=== PATIENT | male | born 1955 | race Caucasian/White ===

== ENCOUNTER 2017-03-22 16:52 | Emergency (ER) | payer BC ==
[~2017-03-22] VITALS: Ht 180.3 cm; Wt 54.0 kg
[~2017-03-22 16:52] MED LIST: AMOXICILLIN500 MG PO; ANACIN 400-321 EACH PO; CLARITHROMYCIN500 MG PO; EXCEDRIN EXTRA1 EACH PO; LEVOFLOXACIN500 MG PO; LO-DOSE ASPIRIN81 M1 PO; NICODERM CQ1 EAC1 TD; OXYCODONE HCL10 MG PO; PRILOSEC OTC20 MG PO; PROTONIX40 MG PO
[2017-03-22] MEDS ORDERED: CREON 241 CAPSULE PO (18:03)
[2017-03-22 18:29] LABS: EOSINOPHIL (%) 0 % (0-5); HEMATOCRIT 39.8 % (38.0-50.0); IMMATURE GRANULOCYTE (%) 0.5 % (0.0-0.7); IMMATURE GRANULOCYTE COUNT 0.1 K/uL; INSTRUMENT ABS NEUTROPHIL CT 8.1 K/uL; LYMPHOCYTE COUNT 0.7 K/uL (1.0-2.8); MCH 23.4 PG (29.0-34.0); MCHC 30.2 G/DL (30.0-36.0); MCV 77.6 FL (86-99); MEAN PLAT.VOLUME 10.3 uM^3 (9.0-12.4); MONOCYTE (%) 5.2 % (3-12); MONOCYTE COUNT 0.5 K/uL (0-0.8); NEUTROPHIL (%) 86.7 % (45-76); NEUTROPHIL COUNT 8.1 K/uL (1.8-6.4); PLATELET COUNT 282 K/uL (156-360); RBC DIS.WIDTH-CV 19.1 % (11.8-14.6); RBC DIS.WIDTH-SD 52.2 % (39-53); RED BLOOD COUNT 5.13 M/uL (4.00-5.50); WHITE BLOOD COUNT 9.3 K/uL (4.1-10.2)
[2017-03-22 18:38] LABS: CHLORIDE 109 mEq/L (99-109); SODIUM 141 mEq/L (136-147)
[2017-03-22 18:40] LABS: GLUCOSE 148 mg/dL (70-99)
[2017-03-22 18:41] LABS: ANION GAP 10 MEQ/L (2-14)
[2017-03-22 18:42] LABS: TOTAL BILIRUBIN 0.4 mg/dL (0.0-1.0)
[2017-03-22 18:44] LABS: ALKALINE PHOSPHATASE 76 IU/L (3-129); GFR ESTIMATE (CALCULATED) > 59 mL/min/
[2017-03-22 18:45] LABS: UREA NITROGEN (BUN) 13 mg/dL (9-23)
[2017-03-22 18:47] LABS: LIPASE 18 U/L (1.0-51.0)
[2017-03-22 19:17] LABS: EPITHELIAL CELLS RARE /HPF; MUCUS 3+ /LPF; RED BLOOD CELLS 0-5 /HPF (0-5)
[2017-03-22 19:18] LABS: BACTERIA 1+ /HPF; CASTS PRESENT /LPF; CRYSTALS NONE SEEN; HYALINE CASTS 0-5 /LPF
[2017-03-22 19:34] LABS: TROP-I INTERPRETATION NEGATIVE; TROPONIN-I < 0.01 ng/mL (0.0-0.30)
[2017-03-22 21:21] LABS: ADD MIUA? YES; BILIRUBIN NEGATIVE; BLOOD MODERATE; COLOR STRAW ((YELLOW)); GLUCOSE (STRIP) 50; KETONES 20; LEUKOCYTES NEGATIVE; NITRITE NEGATIVE; PROTEIN (STRIP) 30; UROBILINOGEN 0.2 MG/DL (0.2-1.0)
[2017-03-22 21:41] LABS: BACTERIA RARE /HPF; EPITHELIAL CELLS NONE SEEN /HPF; RED BLOOD CELLS NONE SEEN /HPF (0-5); WHITE BLOOD CELLS 0-5 /HPF (0-5)
[2017-03-22 21:42] LABS: MUCUS RARE /LPF
[2017-03-22 22:01] LABS: SPECIFIC GRAVITY 1.055 (1.000-1.030)
[2017-03-22] MEDS ORDERED: CIPRO500 MG PO (23:57)
[2017-03-22] MEDS ORDERED: ANTIVERT25 MG PO (23:57)
[2017-03-22] MEDS ORDERED: ZOFRAN ODT4 MG PO (23:57)
[2017-03-23] MEDS ORDERED: FIORICET 50-301 EACH PO (00:04)
[2017-03-23 00:51] VITALS: BP 171/86
== END 2017-03-23 00:53 | disposition home or self-care (01) ==
LOC: EME 16:52
PROVIDERS: Physician Assistant
DX: E86.0 Dehydration (principal); R11.2 Nausea with vomiting, unspecified; H65.90 Unspecified nonsuppurative otitis media, unspecified ear; R42 Dizziness and giddiness; Q45.3 Other congenital malformations of pancreas and pancreatic duct; J44.9 Chronic obstructive pulmonary disease, unspecified; I10 Essential (primary) hypertension; I25.2 Old myocardial infarction; K21.9 Gastro-esophageal reflux disease without esophagitis; Z87.891 Personal history of nicotine dependence
CPT/HCPCS: 74177; 76705; 80053; 81003; 81015; 83605; 83690; 84484; 85025; 93005; 99281; 99285; J2405; J3010; J7030

== ENCOUNTER 2017-06-17 16:56 | Inpatient (IN) | payer BC ==
[~2017-06-17] VITALS: Ht 180.3 cm; Wt 64.3 kg
[~2017-06-17 16:56] MED LIST changes: +ANTIVERT25 MG PO; +CIPRO500 MG PO; +CREON 241 CAPSULE PO; +FIORICET 50-301 EACH PO; +ZOFRAN ODT4 MG PO
[2017-06-17 17:25] LABS: EOSINOPHIL (%) 0.1 % (0-5); HEMATOCRIT 40.7 % (38.0-50.0); IMMATURE GRANULOCYTE (%) 0.2 % (0.0-0.7); LYMPHOCYTE COUNT 0.7 K/uL (1.0-2.8); MCH 25.6 PG (29.0-34.0); MCHC 30.7 G/DL (30.0-36.0); MCV 83.2 FL (86-99); MEAN PLAT.VOLUME 10.2 uM^3 (9.0-12.4); MONOCYTE (%) 4.2 % (3-12); MONOCYTE COUNT 0.3 K/uL (0-0.8); PLATELET COUNT 236 K/uL (156-360); RBC DIS.WIDTH-CV 19.7 % (11.8-14.6); RBC DIS.WIDTH-SD 58.5 % (39-53); RED BLOOD COUNT 4.89 M/uL (4.00-5.50); WHITE BLOOD COUNT 8.1 K/uL (4.1-10.2)
[2017-06-17 17:30] LABS: PROTHROMBIN TIME 11.4 SEC (10.2-12.9)
[2017-06-17 17:32] LABS: PTT 28.5 SEC (25-37)
[2017-06-17 17:37] LABS: CHLORIDE 106 mEq/L (99-109); POTASSIUM 4.2 mEq/L (3.7-5.4); SODIUM 140 mEq/L (136-147)
[2017-06-17 17:39] LABS: GLUCOSE 125 mg/dL (70-99)
[2017-06-17 17:40] LABS: ANION GAP 14 MEQ/L (2-14)
[2017-06-17 17:41] LABS: TOTAL BILIRUBIN 0.4 mg/dL (0.0-1.0)
[2017-06-17 17:43] LABS: ALKALINE PHOSPHATASE 70 IU/L (3-129); GFR ESTIMATE (CALCULATED) > 59 mL/min/
[2017-06-17 17:44] LABS: UREA NITROGEN (BUN) 14 mg/dL (9-23)
[2017-06-17] MEDS ORDERED: SUMATRIPTAN SU100 MG PO (18:57)
[2017-06-17] MEDS ORDERED: LISINOPRIL20 MG PO (18:58)
[2017-06-17] MEDS ORDERED: CITALOPRAM HBR10 MG PO (18:58)
[2017-06-17 20:08] VITALS: BP 146/79
[2017-06-17 22:58] LABS: ADD MIUA? YES; BILIRUBIN NEGATIVE; BLOOD SMALL; COLOR YELLOW ((YELLOW)); GLUCOSE (STRIP) 50; KETONES 5; LEUKOCYTES NEGATIVE; NITRITE NEGATIVE; PROTEIN (STRIP) NEGATIVE; UROBILINOGEN 0.2 MG/DL (0.2-1.0)
[2017-06-17 23:06] LABS: BACTERIA NONE SEEN /HPF; EPITHELIAL CELLS NONE SEEN /HPF; HYALINE CASTS 0-5 /LPF; MUCUS TRACE /LPF; RED BLOOD CELLS 0-5 /HPF (0-5); UCUL ADDED? NO; WHITE BLOOD CELLS 0-5 /HPF (0-5)
[2017-06-17 23:35] VITALS: BP 136/81
[2017-06-18] VITALS (11 sets, daily range): BP systolic 123–172; BP diastolic 74–92
[2017-06-18 22:04] LABS: METH RESISTANT S AUREUS PCR NEGATIVE (NEGATIVE); PROBE CHECK PASS; SPECIMEN PROCESSING CONTROL PASS
[2017-06-19] VITALS (18 sets, daily range): BP systolic 148–177; BP diastolic 68–84
[2017-06-20] VITALS: BP 168/74
[2017-06-20 08:19] VITALS: BP 152/86
[2017-06-20 15:40] VITALS: BP 128/75
[2017-06-20 23:22] VITALS: BP 161/88
[2017-06-21 03:55] VITALS: BP 157/85
[2017-06-21 07:54] VITALS: BP 158/79
[2017-06-21] MEDS ORDERED: NORCO 5/3251 TABLET PO (11:13)
== END 2017-06-21 13:07 | disposition home or self-care (01) | DRG 26 ==
LOC: EME 16:56 → 4EAST 17:43 → EDOF 17:43 → ENRESERV 18:06 → 4EAST 19:54 → ENRESERV 06-18 18:57 → 4WEST 06-18 19:59 → ENRESERV 06-19 13:26 → 3EAST 06-19 15:44
PROVIDERS: Emergency Medicine; Surgery
PROC: 00943ZZ Drainage of Intracranial Subdural Space, Percutaneous Approach (ICD-10-PCS; principal; 2017-06-18)
DX: S06.5X0A Traumatic subdural hemorrhage without loss of consciousness, initial encounter (principal); K91.2 Postsurgical malabsorption, not elsewhere classified; I10 Essential (primary) hypertension; X58.XXXA Exposure to other specified factors, initial encounter; Y92.69 Other specified industrial and construction area as the place of occurrence of the external cause; Y99.0 Civilian activity done for income or pay; I25.2 Old myocardial infarction; K21.9 Gastro-esophageal reflux disease without esophagitis; J44.9 Chronic obstructive pulmonary disease, unspecified; Z87.11 Personal history of peptic ulcer disease; R63.0 Anorexia; Z68.1 Body mass index [BMI] 19.9 or less, adult; F17.210 Nicotine dependence, cigarettes, uncomplicated; R42 Dizziness and giddiness; R51 Headache; R11.2 Nausea with vomiting, unspecified; Z90.3 Acquired absence of stomach [part of]
CPT/HCPCS: 36415; 70450; 71020; 80053; 81003; 85025; 85027; 85610; 85730; 86900; 86901; 87081; 87641; 93005; 99281; 99285; C1713; J0131; J0330; J0360; J0690; J1100; J1170; J2250; J2270; J2405; J2710; J2765; J3010; J3480; J7030

== ENCOUNTER 2017-07-07 18:08 | Inpatient (IN) | payer BC ==
[~2017-07-07] VITALS: Ht 180.3 cm; Wt 55.8 kg
[~2017-07-07 18:08] MED LIST changes: +CITALOPRAM HBR10 MG PO; +LISINOPRIL20 MG PO; +NORCO 5/3251 TABLET PO; +SUMATRIPTAN SU100 MG PO
[2017-07-07 18:49] LABS: HEMATOCRIT 39.3 % (38.0-50.0); MCH 25.7 PG (29.0-34.0); MCHC 31.3 G/DL (30.0-36.0); MCV 82.2 FL (86-99); PLATELET COUNT 353 K/uL (156-360); RBC DIS.WIDTH-SD 53.6 % (39-53); RED BLOOD COUNT 4.78 M/uL (4.00-5.50)
[2017-07-07 18:56] LABS: CHLORIDE 105 mEq/L (99-109); POTASSIUM 4.2 mEq/L (3.7-5.4); SODIUM 138 mEq/L (136-147)
[2017-07-07 18:58] LABS: GLUCOSE 164 mg/dL (70-99)
[2017-07-07 18:59] LABS: ANION GAP 12 MEQ/L (2-14)
[2017-07-07 19:02] LABS: GFR ESTIMATE (CALCULATED) > 59 mL/min/; UREA NITROGEN (BUN) 14 mg/dL (9-23)
[2017-07-07 23:00] VITALS: BP 152/76
[2017-07-08] VITALS (15 sets, daily range): BP systolic 115–191; BP diastolic 62–95
[2017-07-08 22:13] LABS: METH RESISTANT S AUREUS PCR NEGATIVE (NEGATIVE)
[2017-07-08 22:15] LABS: PROBE CHECK PASS; SPECIMEN PROCESSING CONTROL PASS
[2017-07-09] VITALS (22 sets, daily range): BP systolic 128–184; BP diastolic 65–105
[2017-07-10] VITALS (7 sets, daily range): BP systolic 106–141; BP diastolic 70–78
[2017-07-11 00:08] VITALS: BP 114/65
[2017-07-11] MEDS ORDERED: HYDROCODON-ACE1 EAC7 PO (07:54)
[2017-07-11 08:32] VITALS: BP 129/60
== END 2017-07-11 11:54 | disposition home or self-care (01) | DRG 26 ==
LOC: EME 18:08 → EDOF 21:53 → 3EAST 21:53 → 4WEST 21:53 → ENRESERV 21:55 → 3EAST 22:49 → ENRESERV 07-08 19:05 → 3EAST 07-08 19:41 → 4WEST 07-08 20:14 → ENRESERV 07-10 09:26 → CANRESERV 07-10 09:26 → ENRESERV 07-10 09:27 → 3EAST 07-10 16:53
PROVIDERS: Emergency Medicine; Neurological Surgery
PROC: 009430Z Drainage of Intracranial Subdural Space with Drainage Device, Percutaneous Approach (ICD-10-PCS; principal; 2017-07-07)
DX: I62.02 Nontraumatic subacute subdural hemorrhage (principal); S06.5X0D Traumatic subdural hemorrhage without loss of consciousness, subsequent encounter; R51 Headache; I25.2 Old myocardial infarction; I10 Essential (primary) hypertension; F17.210 Nicotine dependence, cigarettes, uncomplicated; Z68.1 Body mass index [BMI] 19.9 or less, adult; K21.9 Gastro-esophageal reflux disease without esophagitis; J44.9 Chronic obstructive pulmonary disease, unspecified; R11.2 Nausea with vomiting, unspecified; K92.2 Gastrointestinal hemorrhage, unspecified
CPT/HCPCS: 70450; 80048; 85027; 87641; 99281; 99285; C1713; J0360; J0690; J1100; J1170; J2270; J2405; J2765; J3010; J3480; J7030; S0020

== ENCOUNTER 2018-01-23 17:19 | Emergency (ER) | payer BC ==
[~2018-01-23] VITALS: Ht 180.3 cm; Wt 61.3 kg
[~2018-01-23 17:19] MED LIST changes: +HYDROCODON-ACE1 EAC7 PO
[2018-01-23 18:14] LABS: ALBUMIN 3.5 G/DL (3.2-4.8); DIRECT BILIRUBIN 1.4 mg/dL (0.0-0.3); TOTAL BILIRUBIN 2.3 MG/DL (0.0-1.0)
[2018-01-23 18:20] LABS: ALKALINE PHOSPHATASE 661 IU/L (3-129); ALT (GPT) 39 IU/L (3-49); AST (GOT) 46 IU/L (2-34); LIPASE 29 U/L (1.0-51.0); TOTAL PROTEIN 6.7 G/DL (6.4-8.3)
[2018-01-24 08:11] VITALS: BP 126/66
== END 2018-01-24 08:28 | disposition short-term general hospital (02) ==
LOC: EME 17:19
PROVIDERS: Physician Assistant
DX: K80.51 Calculus of bile duct without cholangitis or cholecystitis with obstruction (principal); I10 Essential (primary) hypertension; K21.9 Gastro-esophageal reflux disease without esophagitis; I25.2 Old myocardial infarction; F41.9 Anxiety disorder, unspecified; Z87.11 Personal history of peptic ulcer disease; Z87.891 Personal history of nicotine dependence
CPT/HCPCS: 74177; 80076; 83690; 99281; 99285; J7040